=== PATIENT | female | born 1970 | race Caucasian/White ===

== ENCOUNTER 2019-12-23 21:35 | Emergency (ER) | payer OTHER, SELFPAY ==
--- NOTE | 2019-12-23 22:02 | XR_ITS ---
EXAMINATION: XR FOOT, LEFT CLINICAL INFORMATION: Trauma COMPARISON: None TECHNIQUE: 3 views of the left foot. FINDINGS: No acute fracture or subluxation. There is soft tissue swelling over the metatarsal region. There is arterial calcification. Hypertrophic changes associated with the dorsum of the talonavicular joint and mild dorsal calcaneal spurring XR/XR foot LT min 3V IMPRESSION: Soft tissue swelling. No definite acute fracture demonstrated
--- NOTE | 2019-12-23 22:03 | ED_ITS ---
HPI - Extremity Injury (Lower) General Chief Complaint: Extremity Injury, Lower Stated Complaint: FOOT PAIN Time Seen by Provider: 12/23/19 21:48 History of Present Illness HPI Narrative: patient is a 49-year-old diabetic female she slammed her left middle toe against a dresser about a week to 2 weeks ago. Complaining of pain to that foot ever since. There has been increasing swelling to the foot. Patient claims when she ambulates she has tremendous pain. No fever no chills no coughing or congestion or upper respiratory symptoms. No redness to the foot. Positive swelling getting worse over the dorsum of the foot. Related Data Previous Rx's Medication Instructions Recorded amoxicillin-pot clavulanate 1 tab PO BID #14 tab 12/23/19 [Augmentin] ibuprofen 400 mg PO Q6H PRN #20 tab 12/23/19 Allergies Allergy/AdvReac Type Severity Reaction Status Date / Time quetiapine [From SEROQUEL] AdvReac Intermediate TWITCHING Unverified 11/15/19 19:23 trazodone [TRAZODONE] AdvReac Unknown NAUSEA AND Unverified 11/15/19 19:23 VOMITING Review of Systems Review of Systems: No fever no chills no coughing or congestion Constitutional: No Weight loss, No Fever, No Chills, No Night Sweats, No Fatigue, No Malaise ENT/Mouth: No Hearing loss, No Ear Pain, No Nasal Congestion, No Sinus Pain, No Hoarseness, No sore throat, No Rhinorrhea, No Swallowing Difficulty Eyes: No Eye Pain, No Swelling, No Redness, No Foreign Body, No Discharge, No Vision Changes Cardiovascular: No Chest Pain, No SOB, No Dyspnea on Exertion, No Orthopnea, No Edema, No Palpitations Respiratory: No Cough, No Sputum, No Wheezing, No Smoke Exposure, No Dyspnea Gastrointestinal: No Nausea, No Vomiting, No Diarrhea, No Constipation, No abdominal Pain, No Hematochezia, No Melena Genitourinary: no irregular bleeding, No Dysuria, No Urinary Frequency, No Hematuria, No Urinary Incontinence, No Urgency, No Flank Pain, No Urinary Flow Changes, No Hesitancy Musculoskeletal: No joint pain, No Myalgias, positive swelling to left foot Skin: No Skin Lesions, No rash Neuro: No Weakness, No Numbness, No Paresthesias, No Loss of Consciousness, No Dizziness, No Headache Psych: No Anxiety/Panic, No Depression, No SI/HI/AH/VH, No Social Issues, Heme/Lymph: No Bruising, No Bleeding,No Lymphadenopathy Endocrine: No Polyuria, No Polydipsia, No Temperature Intolerance [facility] Past Medical History Attestation statement: The following information was validated with the patient. Medical History (Updated 12/23/19 @ 22:37 by Sujatha Garcia MD) Acute back pain with sciatica Anxiety COPD (chronic obstructive pulmonary disease) Depression Diabetic acidosis, type I Social History Social History Alcohol intake: never Smoking Status: Current every day smoker Smoked in Last 30 Days: Yes Use of substances other than those prescribed or required for medical reasons: Yes Substance Use Type: Marijuana Advance Directives: No Advance Directives Information Provided: Yes Physical Exam Vital Signs: Vital Signs: Vital Signs Temp Pulse Resp BP Pulse Ox 12/23/19 22:10 98.8 F 72 16 156/58 H 96 Body Mass Index 32.9 Appearance: Alert. Oriented X3. No acute distress. Eyes: Pupils equal, round and reactive to light. ENT: Pharynx normal. Neck: Normal inspection. Neck supple. No lymph nodes noted. No crepitus CVS: Normal heart rate and rhythm. Pulses normal. Normal S1 and S2 Respiratory: No respiratory distress. Breath sounds normal. No Wheezing. No rales Abdomen: Soft and nontender. No rigidity. No distention. good BS x4 Skin: Skin warm and dry. Normal skin color. Normal skin turgor. Extremities: positive minimal swelling to the left foot. min redness no warmth to touch. Pain on movement. Sensation over the foot intact. Pulses 2+ at dorsalis pedis. Able to move her toes. Neurovascular intact to all extremities. No Lacerations. No Rash Neuro: Oriented X 3. No motor deficit. No sensory deficit. Moving all extermities. No slurred speech MDM - Extremity Injury (Lower) MDM Narrative Medical decision making narrative: X-ray showed no evidence of fracture. Mild swelling. Question contusion but since symptom has been ongoing for 2 weeks. Will give some antibiotics for possible infection as patient is diabetic poorly controlled. Patient told to be careful with her sugar. To closely follow-up. To elevate to put ice on it. Worsening condition return. Close follow-up advised. Lab Data Labs: Lab Results 12/23/19 Range/Units 22:19 POC Glucose 295 H (60-115) mg/dL Discharge Plan Discharge Clinical Impression: Contusion, Cellulitis Patient Disposition: Home, Self-Care Instructions: Cellulitis (ED), Contusion in Adults (ED) Prescriptions: New amoxicillin-pot clavulanate [Augmentin] 875-125 mg tablet 1 tab PO BID Qty: 14 RF: 0 ibuprofen 400 mg tablet 400 mg PO Q6H PRN (Reason: pain) Qty: 20 RF: 0 Referrals: Physician,Unknown [Primary Care Provider] - 2 days
[2019-12-23 22:10] VITALS: BP 156/58; PULSE 72; RESP 16; TEMP 37.1; O2SAT 96; BMI 32.9
[2019-12-23 22:23] LABS: Glucose, Whole Blood 295 mg/dL (60-115)
== END 2019-12-23 23:12 | disposition home or self-care (01) ==
PROVIDERS: Emergency Provider Emergency Medicine Emergency Medical Services
DX: S90.122A Contusion of left lesser toe(s) without damage to nail, initial encounter (principal); W22.03XA Walked into furniture, initial encounter; L03.032 Cellulitis of left toe; F17.200 Nicotine dependence, unspecified, uncomplicated; Y93.9 Activity, unspecified; Y92.013 Bedroom of single-family (private) house as the place of occurrence of the external cause; Y99.9 Unspecified external cause status
CPT/HCPCS: 73630; 82947; 99283; 99284